=== PATIENT | female | born 1990 | race Caucasian/White ===

== ENCOUNTER 2025-09-04 14:17 | Emergency (ER) | payer MEDICAID ==
[~2025-09-04] VITALS: Ht 167.6 cm; Wt 80.0 kg
[2025-09-04 14:24] VITALS: O2SAT 99
[2025-09-04] MEDS: DIPHENHYDRAMINE 50MG/ML VIAL IM ONE ×2 (16:01→16:31)
[2025-09-04] MEDS: LORAZEPAM 2MG/ML UD SYRINGE IM NR (16:01)
[2025-09-04] MEDS: HALOPERIDOL LACTATE 5MG/ML VIAL IM ONE ×2 (16:01→16:31)
[2025-09-04 17:52] LABS: BASOPHILS % 0.4 % (0.0-2.0); EOSINOPHILS % 1.4 % (0.0-5.0); HEMATOCRIT. 37.6 % (36.0-48.0); HEMOGLOBIN. 12.9 g/dL (12.0-16.0); LYMPHOCYTES % 23.2 % (20.0-50.0); MEAN PLATELET VOLUME 11.9 fl (7.4-10.4); MONOCYTES % 6.6 % (2.0-8.0); NEUTROPHILS % 68.4 % (40.0-76.0); PLATELET 230 x1000/uL (130-400); RED BLOOD CELL COUNT 4.24 mill/uL (4.2-5.4); RED CELL DISTRIBUTION WIDTH 12.7 % (11.6-14.6)
[2025-09-04 18:06] LABS: CREATININE 0.9 mg/dL (0.6-1.0); PROTEIN TOTAL 6.2 g/dL (6.0-8.3); UREA NITROGEN BLOOD 9 mg/dL (9-23)
[2025-09-04 18:07] LABS: ETHANOL BLOOD < 10 mg/dL (<10)
[2025-09-04 18:08] LABS: ASPARTATE AMINOTRANSFERASE 21 IU/L (<34); BILIRUBIN DIRECT 0.1 mg/dL (<=3.0); BILIRUBIN TOTAL 0.4 mg/dL (0.1-1.0)
[2025-09-04 18:15] LABS: HCG SCREEN NEGATIVE
[2025-09-04 20:43] LABS: CLARITY URINE CLEAR (CLEAR); COLOR URINE YELLOW (YELLOW); GLUCOSE URINE NEGATIVE (NEGATIVE); KETONES URINE NEGATIVE (NEGATIVE); LEUKOCYTE ESTERASE URINE NEGATIVE (NEGATIVE); NITRITE URINE NEGATIVE (NEGATIVE); OCCULT BLOOD URINE NEGATIVE (NEGATIVE); PH URINE 5.5 (4.5-8.0); PROTEIN URINE NEGATIVE (NEGATIVE); SPECIFIC GRAVITY URINE 1.009 (1.005-1.030); UROBILINOGEN URINE 0.2 E.U./dL (0.2-1.0)
[2025-09-04 20:53] LABS: *AMPHETAMINES SCREEN URINE PRESUMPTIVE POSITIVE (NEGATIVE); *BARBITURATES SCREEN URINE NEGATIVE (NEGATIVE); *BENZODIAZEPINES SCREEN URINE NEGATIVE (NEGATIVE); *COCAINE SCREEN URINE NEGATIVE (NEGATIVE)
[2025-09-04 20:54] LABS: CANNABINOID URINE SCREEN NEGATIVE (NEGATIVE); ECSTASY MDMA SCREEN URINE NEGATIVE (NEGATIVE); METHADONE URINE SCREEN NEGATIVE (NEGATIVE); OPIATES URINE SCREEN NEGATIVE (NEGATIVE); PHENCYCLIDINE URINE SCREEN NEGATIVE (NEGATIVE)
[2025-09-05 12:48] VITALS: BP 106/69; PULSE 60; RESP 17; TEMP 36.8; O2SAT 100
== END 2025-09-05 12:55 ==
LOC: ER 14:40
DX: F20.0 Paranoid schizophrenia (principal); Z20.822 Contact with and (suspected) exposure to COVID-19; Z79.899 Other long term (current) drug therapy
CPT/HCPCS: 80076; 80048; 81003; 80307; 84703; 85025; 36415; 93005; 96372; 99285; 87426; G0480; J1200; J1630; J2060; Z7610 ×3; 80305; 80320; 80329; A4606